=== PATIENT | female | born 1950 | race Caucasian/White ===

== ENCOUNTER 2023-07-11 12:55 | Outpatient (OUT) | payer SELFPAY | END 2023-07-11 12:56 | disposition home or self-care (01) | LOC: PST 12:55 | PROVIDERS: PCP Family Medicine; Visit Provider Ophthalmology | DX: Z01.818 Encounter for other preprocedural examination (principal); H25.812 Combined forms of age-related cataract, left eye ==

== ENCOUNTER 2023-07-13 06:16 | Day surgery (SDC) | payer OTHER, SELFPAY ==
--- NOTE | 2023-07-12 | HP_ITS ---
PREOPERATIVE HISTORY AND PHYSICAL Date:? 07/12/2023 HISTORY:? The patient is a 72-year-old female with complaints of declining vision out of her left eye.? The gradual onset of this has occurred over the last 1-2 years, worsening over that timeframe.? She had noticed that her distance acuity and reading acuity is not as crisp.? She states having road signs at a distance becoming more difficult and the scrolling at the bottom of the TV also becoming more difficult.? Night time driving is more difficult due to the headlights creating glare and halos. PAST OCULAR HISTORY:? Cataract removal right eye 2019. PAST MEDICAL HISTORY:? Denies. SOCIAL HISTORY:? Denies tobacco, alcohol or recreational drug abuse.? SYSTEMIC MEDICATIONS:? She denies. ALLERGIES:? Denies. REVIEW OF SYSTEMS:? No pertinent positives. PHYSICAL EXAM:? GENERAL:? She is awake, alert and oriented x3, well developed, well nourished, in no acute distress.? HEART:? Regular rate and rhythm. LUNGS:? Clear bilaterally. ABDOMEN:? Soft, non-tender, non-distended. EXTREMITIES:? No pitting edema. OPHTHALMIC EXAM:? Revealed a visual acuity of 20/20 in the right, 20/400 in the left.? ?Pupils motility, muscle balance, confrontational visual hdez within normal limits bilaterally.? Pressures were measured at 16 bilaterally.? Slit lamp exam revealed blepharitis with a severe decrease in tear film bilaterally.? Conjunctiva, cornea, anterior chamber and iris were within normal limits bilaterally.? Lens status demonstrated well centered posterior chamber intraocular lens in the right eye, and 3+ nuclear sclerosis, 1+ cortical changes in the left eye. FUNDUS EXAM:? Revealed a good view with good dilation bilaterally.? Optic discs, macula, vessels, periphery and vitreous were within normal limits bilaterally. ASSESSMENT AND PLAN:? Visually significant cataract, left eye.? After risks, benefits, alternatives, as well as expectations were delivered to the patient, she elected to go forward with cataract removal.? She understands the risks include but not limited to infection, bleeding, loss of vision, loss of the eye itself.? Secondly, she understands postoperatively she is likely to require spectacle correction for best visual acuity.? Finally, a complete ophthalmic exam was performed, there is not determined to be any other source of visual decline other than that of the cataract.? After understanding all the risks as well as expectations, she elected to go forward with procedure as listed above and will be doing so in the near future. LEO
--- NOTE | 2023-07-13 | OP_ITS ---
OP Note OPERATION DATE: ??07/13/2023 SURGEON:? Dontrell Ruiz M.D. PREOPERATIVE DIAGNOSIS:? Nuclear sclerotic cataract left eye. POSTOPERATIVE DIAGNOSIS:? Nuclear sclerotic cataract left eye. PROCEDURE:? Cataract extraction with intraocular lens placement for the left eye. ANESTHESIA:? Topical ESTIMATED BLOOD LOSS:? Zero. COMPLICATIONS:? None. PROCEDURE:? In the preoperative holding area, patient received topical proparacaine and then sat up in the upright position.? The 6 o?clock limbus was marked with a marking pen for future reference for the Toric lens positioning.? The patient was then brought to the operating room in supine position.? After proper identification, the left eye was prepped and draped in a sterile ophthalmic fashion.? A paracentesis was created at the 5 o'clock position.? Approximately 1 cc of unpreserved Xylocaine was injected into the anterior chamber followed by Amvisc Plus.? Using a 2.6 mm Keratome blade, a clear corneal incision was created at the 3 o'clock limbus.? A cystotome was then used to begin a curvilinear capsulorrhexis that was continued for 360 degrees with the Utrata forceps.? BSS on a 26 gauge cannula was injected beneath the anterior capsule to hydrodissect as well as hydrodelineate the lens.? After ensuring mobility, phacoemulsification was performed in a [id number]-type fashion.? After all nuclear material had been removed from the eye, IA was introduced and all residual cortical material was cleaned up. ?Additional Amvisc Plus was injected into the posterior bag to further pressurize and stabilize it.? Referencing the 6 o?clock limbal meng that was made preoperatively, the 107 degree axis was identified and marked with a [facility] marking system.? A lens model [id number], 21.0 diopters was injected and dialed approximately 10 degrees shy of the 107 degree axis.? IA was reintroduced into the anterior chamber and all residual Amvisc Plus was removed from the eye.? Utilizing the tip of the IA, the lens was rotated the final 10 degrees to the 107 degree axis.? BSS on a 30 gauge cannula was injected into the stroma of both the clear corneal incision as well as the paracentesis to hydrate the wounds.? Additional BSS was injected into the anterior chamber to pressurize the eye at approximately 20 to 22 mmHg by finger tension.? 0.3 cc of antibiotic was injected into the anterior chamber, maintaining the pressures above.? Weck-Marlin sponges were used to check the wounds to be watertight and a shield was placed over top. The patient was then sent to the postoperative area in satisfactory condition to follow up the following day for postoperative care. LEO
--- OUTSIDE RECORDS SUMMARY | 2023-07-13 06:19 | XMS_ITS | CCD ---
Author Organization [facility] Care Team Providers Care Milieu Therapist Name Role Phone RADHA TROY Admitting Unavailable RADHA TROY Attending Unavailable RADHA TROY Consulting Unavailable NKECHI ADAM Primary Care Unavailable RADHA TROY Attending Unavailable MARLEN RIVERA Referring Unavailable Problems Problem Classification Problem Date Documented Da te Episodic/Chronic Cataract (4 sources) Age-related nuclear cataract, right eye; Translations: [AGE-REL NUCLEAR CATARACT RT EYE] Onset: 04-12-2018 Chronic Results Test Name Value Interpretation Reference Range Facil ity HISTORY AND PHYSICAL EXAMALMAZ Buck 04-12-2018 HISTORY AND PHYSICAL EXAMINATION HISTORY AND PHYSICAL EXAMINATION HISTORY: The patient is a 67 year-old white female with complaints of vision decline out of her right eye. She states that the symptoms onset came in October this prior year. In a constant progressive fashion, she's worsened her vision over that time. No longer does she feel comfortable driving with this eye and seeing road signs at a distance or watching TV. PAST OCULAR HISTORY: Blepharoplasty of the lids bilaterally. PAST MEDICAL HISTORY: Denies. SOCIAL HISTORY: Denies tobacco, alcohol or recreational drug abuse. SYSTEMIC MEDICATIONS: Denies. ALLERGIES: Denies. REVIEW OF SYSTEMS: No pertinent positives. PHYSICAL EXAM: VITALS:Blood pressure is measured at 137/74 with a respiration rate of 12 and a pulse of 78. GENERAL: The patient is awake, alert and oriented x3, well-developed, well-nourished, in no acute distress. HEART:Regular rate and rhythm. LUNGS:Clear bilaterally. ABDOMEN:Soft, nontender, nondistended. EXTREMITIES: No pitting edema. OPHTHALMIC EXAM: Revealed a visual acuity of 20/400 in the right eye and 20/20 - 2 in the left eye. Pupils motility, muscle balance and confrontational visual hdez within normal limits bilaterally. Pressures are measured at 17 bilaterally. Slit lamp exam revealed blepharitis with a severe decrease in tear film bilaterally. Conjunctiva, cornea, anterior chamber and iris were within normal limits bilaterally. Lens status demonstrated a 3+ nuclear sclerosis in the right eye and 2+ nuclear sclerosis in the left eye. FUNDUS EXAM: Revealed good dilation with a good view bilaterally. Optic discs, macula, vessels, periphery and vitreous were within normal limits bilaterally. In the right eye she demonstrated a mild epiretinal membrane in her macula and she has normal macula in her left eye. ASSESSMENT / PLAN: Visually significant cataract, right eye. After risks, benefits, alternatives, as well as expectations were delivered to the patient, she would like to go forward with cataract removal. She understands those risks to include, but not limited to infection, bleeding, loss of vision or loss of the eye itself. Secondly, she elected to receive a Toric intraocular lens to refine and customize her postoperative state as best as possible. She understands that this carries an [id number]-ys-[id number] expense related to it and there is not a guarantee that she might not need glasses when things are said and done. Finally, a complete ophthalmic exam was performed, there is not determined to be any other source of vision decline other than that of the cataract. After understanding all risks as well as expectations, she elected to go forward with the procedure as listed above and will be doing so in the near future. [facility] Signed and Approved by: RADHA TROY 04/16/2018 17:30:00 Normal [facility] Encounters Encounter Date Encounter Type Care Provider Facility Start: 05-30-2023 End: 05-30-2023 ambulatory RADHA TROY Not Available Start: 04-12-2018 End: 04-12-2018 Patient encounter procedure RADHA TROY Facility: Payers Date Payer Category Payer Unknown [id number] 1961 Private Health Insurance [id number] 1950 Unknown [id number] 1950 Unknown [id number] Summary Purpose Family History No Family History Records FoundNo Family History Records Found Advance Directives No Advanced Directives Records FoundNo Advanced Directives Records Found Procedure Findings Note OPERATIVE NOTE OPERATION RADHA E: 04-12-18 ANESTHETIC: Topical. PREOPERATIVE DIAGNOSIS: Nuclear sclerotic cataract of the right eye. POSTOPERATIVE DIAGNOSIS:Same. PROCEDURE NAME:Cataract extraction with intraocular lens placement for the right eye. ESTIMATED BLOOD LOSS: Zero. COMPLICATIONS: None. PROCEDURE: In the preoperative holding area the patient was anesthetized with topical proparacaine and sat up in the upright position. In this position, the 6 o'clock limbus was marked with a marking pen for future reference for a Toric intraocular lens. The patient was brought to the Operating Room in the supine position. After proper identification, the right eye was prepped and draped in the sterile ophthalmic fashion. Several drops of tetracaine were placed into the right eye and a paracentesis created at the 11 o'clock position. Approximately 0.1 mL of 1% Xylocaine was injected into the anterior chamber followed by Amvisc Plus. Using a 2.6 mm Keratome blade a clear corneal incision was create (more content not included)... Additional Source Comments INFORMATION SOURCE (unrecogn ized section and content) DATE CREATED AUTHOR 04/20/2018 [facility] DATE CREATED AUTHOR AUTHOR'S ORGANIZ ATION 06/01/2023 [facility] FOR RECORDS PERTAINING TO PATIENTS WHO ARE OR HAVE BEEN ENROLLED IN A CHEMICAL DEPENDENCY/SUBSTANCEABUSE PROGRAM, SOME INFORMATION MAY BE OMITTED. This clinical summary was aggregated from multiple sources. Caution should be exercised in using it in the provision of clinical care. This summary normalizes information from multiple sources, and as a consequence, information in this document may materially change the coding, format and clinical context of patient data. In addition, data may be omitted in some cases. CLINICAL DECISIONS SHOULD BE BASED ON THE PRIMARY CLINICAL RECORDS. [employer] provides no warranty or guarantee of the accuracy or completeness of information in this document.
[2023-07-13 06:20] VITALS: BP 178/84; PULSE 64; TEMP 36.1; O2SAT 98
[2023-07-13] MEDS: DIAZEPAM 5 MG TABLET PO (06:34)
[2023-07-13] MEDS: CYCLOPENTOLATE HCL 1% OP SOL 40 DROP/2 ML BOTTLE OP ×4 (06:35→07:05)
[2023-07-13] MEDS: TROPICAMIDE 1% OP SOL 300 DROP/15 ML BOTTLE OP ×4 (06:35→07:05)
[2023-07-13] MEDS: PHENYLEPHRINE HCL 2.5% OP SOL 40 DROP/2 ML BOTTLE OP ×4 (06:36→07:05)
[2023-07-13] MEDS: BESIFLOXACIN HCL 100 DROP DROPS.SUSP OP ×4 (06:36→07:06)
[2023-07-13] MEDS: PROPARACAINE HCL 0.5% 300 DROP/15 ML BOTTLE OP (07:25)
[2023-07-13 07:31] VITALS: BP 171/83; PULSE 66; O2SAT 97
[2023-07-13] MEDS: APRACLONIDINE HCL 0.5% SOL 100 DROP/5 ML BOTTLE OP (07:36)
[2023-07-13] MEDS: LIDOCAINE 2% JELLY 10 ML TOPICAL (07:37)
[2023-07-13] MEDS: LIDOCAINE HCL 1% PF 20 MG/2 ML VIAL INJ (07:37)
[2023-07-13] MEDS: HYALURONATE SODIUM 16 MG/ML SYRINGE OP (07:37)
[2023-07-13] MEDS: PHENYLEPHRINE/KETOROLAC 1-0.3% ML VIAL 4 ML IRR (07:38)
[2023-07-13] MEDS: BETADINE POVIDONE-IODINE 5% OP SOL 30 ML BOTTLE OP (07:38)
[2023-07-13] MEDS: PREDNISOLONE ACETATE OP 1% SUSP 100 DROPS/5 ML 1 DROP OP (07:38)
[2023-07-13] MEDS: TETRACAINE HCL 0.5% OP SOL 80 DROP/4 ML BOTTLE OP (07:38)
[2023-07-13 07:39] VITALS: BP 172/85; PULSE 70; O2SAT 96
[2023-07-13] MEDS: CEFUROXIME SODIUM 750 MG, 0.9 % SODIUM CHLORIDE 16.3 ML OP (07:39)
== END 2023-07-13 08:04 | disposition home or self-care (01) ==
LOC: SURGOUT 06:18
PROVIDERS: PCP Family Medicine; Visit Provider Ophthalmology
PROC: (CPT 66984; principal; 2023-07-13 07:30)
DX: H25.12 Age-related nuclear cataract, left eye (principal)
CPT/HCPCS: 66984; V2630